=== PATIENT | male | born 1940 | race Caucasian/White ===

== ENCOUNTER → 2020-12-01 | Outpatient (CLI) | payer MEDICARE ==
--- NOTE | 2020-12-01 17:27 | REP ---
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 COMPARISON: None FINDINGS: On the right: The ankle brachial index is 0.32 CORE STICKER 95/378 centimeters/second monophasic Profunda 228 centimeters/second monophasic SFA proximal occluded SFA Mid revascularized 57 centimeters/second/occluded monophasic SFA distal occluded Popliteal revascularized occluded/11.5 centimeters/second monophasic Tibioperoneal trunk 10.2 centimeters/second monophasic DEISY proximal 11/36 centimeters/second/occluded monophasic [employer] proximal 8.4 centimeters/second monophasic [employer] distal 14.9 centimeters/seconds monophasic DEISY distal revascularize 17.3 centimeters/second monophasic On the left: The ankle brachial index is 0.29 CORE STICKER 208 centimeters/second/484 centimeters/second/ Profundal revascularized 44.6 centimeters/second monophasic SFA proximal revascularized 29.3 centimeters/second monophasic SFA Mid revascularized 22.8 centimeters/second/occluded monophasic SFA distal occluded Popliteal 22.9 centimeters/second monophasic DEISY proximal 10.7 centimeters/second monophasic Tibioperoneal trunk 16.9 centimeters/second monophasic [employer] proximal 19.8 centimeters/second monophasic [employer] distal 18.5 cm present monophasic DEISY distal 6.5 centimeters/second monophasic Severe plaque was seen throughout the exam. IMPRESSION: As above <Electronically signed by Ezio Tucker > 12/01/20 [id number]
== END ==
LOC: M RAD 12:39
DX: I73.9 Peripheral vascular disease, unspecified (principal)

== ENCOUNTER 2023-10-17 08:30 | Day surgery (SDC) | payer MEDICARE ==
[~2023-10-17] VITALS: Ht 175.3 cm; Wt 60.7 kg
[~2023-10-17 08:30] MED LIST: AMLO1TAB24 PO; ASPI81TA26 PO; ATOR80TA59 PO; BSS IRRIG/VANCO(10MG)/TOBRA(5MG)/EPINEPH(1:1000-0.5CC)500ML BAG-ORONLY IR ONE; CEFUROXIME 1MG/0.1ML INTRACAMERAL INJ As Ordered ONE; CYCLOPENTOLATE 1% OPHTH SOLN 2ML BTL OD SCH; FOLI1TAB11 PO; LIDOCAINE 1% SDV 5ML VIAL As Ordered ONE; LIDOCAINE 3.5 % 1ML OPHTH TOPICAL GEL OU ONE; METO1TAB7 PO; OFLOXACIN 0.3 % (OCUFLOX) OPTH SOL 5ML OD ONE; PHENYLEPHRINE 10% OPHTH SOL 5ML OD PRN; PHENYLEPHRINE 2.5% OPHTH SOL 2ML OD SCH; TROPICAMIDE 1% OPHTH SOLN 15ML OD SCH
[2023-10-17] MEDS ORDERED: fentaNYL 100 MCG/2 ML INJECTION As Ordered ONE (08:43)
[2023-10-17] MEDS ORDERED: MIDAZOLAM INJ 2MG/2ML VIAL As Ordered ONE (08:43)
[2023-10-17 10:46] VITALS: BP 143/62; TEMP 97.5; O2SAT 94
== END 2023-10-17 11:03 | disposition home or self-care (01) ==
LOC: M SDC 08:30
PROVIDERS: ATTEND Ophthalmology
DX: H25.11 Age-related nuclear cataract, right eye (principal); I10 Essential (primary) hypertension; E78.5 Hyperlipidemia, unspecified; R19.7 Diarrhea, unspecified; Z79.82 Long term (current) use of aspirin; Z79.899 Other long term (current) drug therapy; F17.218 Nicotine dependence, cigarettes, with other nicotine-induced disorders
CPT/HCPCS: 66984; J0697; J2250; J3010; V2632

== ENCOUNTER → 2024-02-07 | Outpatient (CLI) | payer MEDICARE ==
[~2024-02-07] MED LIST changes: +B-12100011; -BSS IRRIG/VANCO(10MG)/TOBRA(5MG)/EPINEPH(1:1000-0.5CC)500ML BAG-ORONLY IR ONE; -CEFUROXIME 1MG/0.1ML INTRACAMERAL INJ As Ordered ONE; -CYCLOPENTOLATE 1% OPHTH SOLN 2ML BTL OD SCH; +HYDR-3363; -LIDOCAINE 1% SDV 5ML VIAL As Ordered ONE; -LIDOCAINE 3.5 % 1ML OPHTH TOPICAL GEL OU ONE; +MECL-86; +MUPI2OI; -OFLOXACIN 0.3 % (OCUFLOX) OPTH SOL 5ML OD ONE; -PHENYLEPHRINE 10% OPHTH SOL 5ML OD PRN; -PHENYLEPHRINE 2.5% OPHTH SOL 2ML OD SCH; +PROHANCE 279.3MG/ML 5ML VIAL ONE; +TRAZ-257 PO; -TROPICAMIDE 1% OPHTH SOLN 15ML OD SCH
== END ==
LOC: M PLAIMG 09:49
PROVIDERS: ATTEND Internal Medicine Hematology & Oncology
DX: R51.9 Headache, unspecified (principal); C34.90 Malignant neoplasm of unspecified part of unspecified bronchus or lung
CPT/HCPCS: 70553; A9576